=== PATIENT | female | born 1990 | race Hispanic/Latino ===

== ENCOUNTER 2018-06-07 10:38 | Outpatient (CLI) | payer MEDICAID ==
[2018-06-07] MEDS ORDERED: LACTATED RINGERS 500 ML IV ONE (10:46)
[2018-06-07 12:04] VITALS: BP 116/63
--- NOTE | 2018-06-07 13:12 | Ultrasound Report ---
LIMITED OB ULTRASOUND: bleeding. Gestation: [place] Position: Cephalic RAHUL = 21.5 cm Placenta: Posterior Placental Grade: 1 Heart Rate: 156 BPM Estimated gestational age is 26 weeks 5 days.
== END 2018-06-07 12:28 | disposition home or self-care (01) ==
LOC: TRG 10:38
PROVIDERS: ATTEND Obstetrics & Gynecology
DX: O47.02 False labor before 37 completed weeks of gestation, second trimester (principal); Z3A.26 26 weeks gestation of pregnancy
CPT/HCPCS: 59025; 76815

== ENCOUNTER 2018-07-20 13:13 | Outpatient (CLI) | payer MEDICAID ==
[2018-07-20 14:19] LABS: Bacteria,Urine 2+ /HPF (Negative); Bilirubin,Urine NEG (Negative); Blood,Urine MOD (Negative); Color,Urine Straw (Yellow); Protein,Urine <15 mg/dL mg/dL (Negative); Urobilinogen,Urine < 2.0 mg/dL (<2.0)
[2018-07-20 14:31] VITALS: BP 109/74
[2018-07-20] MEDS ORDERED: BRETHINE SUB-Q PRN (14:55)
[2018-07-20] MEDS ORDERED: LACTATED RINGERS 1,000 ML IV SCH (15:00)
--- NOTE | 2018-07-20 16:41 | Ultrasound Report ---
LIMITED OB ULTRASOUND: Fluid leaking. Gestation: [place] Position: Cephalic RAHUL (23.5) Heart Rate: 145 BPM Gestational age 32 weeks 6 days. Comment: Amniotic fluid volume at upper limits of normal.
== END 2018-07-20 15:55 | disposition home or self-care (01) ==
LOC: TRG 13:13
PROVIDERS: ATTEND Obstetrics & Gynecology
DX: O47.03 False labor before 37 completed weeks of gestation, third trimester (principal); Z3A.32 32 weeks gestation of pregnancy
CPT/HCPCS: 59025; 76815; 81001; 96360; J3105; J7120

== ENCOUNTER 2018-07-25 22:41 | Outpatient (CLI) | payer MEDICAID ==
[2018-07-25 22:54] VITALS: BP 118/72
[2018-07-25] MEDS ORDERED: LACTATED RINGERS 1,000 ML IV ONE (23:37)
[2018-07-26] MEDS ORDERED: VISTARIL PO PRN (01:33)
== END 2018-07-26 01:55 | disposition home or self-care (01) ==
LOC: TRG 22:41
PROVIDERS: ATTEND Obstetrics & Gynecology
DX: O47.03 False labor before 37 completed weeks of gestation, third trimester (principal); Z3A.33 33 weeks gestation of pregnancy
CPT/HCPCS: 59025; 96360; J7120; Q0177

== ENCOUNTER 2018-08-02 05:27 | Inpatient (IN) | payer MEDICAID ==
[2018-08-02] MEDS ORDERED: LACTATED RINGERS 1,000 ML IV ONE (05:35)
[2018-08-02 06:02] LABS: Bilirubin,Urine NEG (Negative); Blood,Urine MOD (Negative); Calcium Oxalate Crystals,Urine FEW; Color,Urine Yellow (Yellow); Hyaline Casts,Urine 1 /LPF; Mucus,Urine FEW /HPF; Protein,Urine <15 mg/dL mg/dL (Negative); Urobilinogen,Urine < 2.0 mg/dL (<2.0)
[2018-08-02] MEDS ORDERED: SUBLIMAZE IV ONE (06:19)
--- NOTE | 2018-08-02 07:34 | History and Physical Report ---
History of Present Illness Date of examination: 08/02/18 Chief complaint: contractions @ 34+5 weeks History of present illness: EDC Calculations by LMP: 09/08/2018 Past History : 1 Term Births: 0 Premature Births: 0 Living Children: 0 Para: 0 Mult. Births: 0 Prev : 0 Aborta: 0 Elect. Ab: 0 Spont. 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 of genital herpes: no Partner hx. of genital herpes: no Rash, Viral, or Febrile illness since last LMP? no Varicella/Chicken Pox Status: Previous Disease Genetic History Congenital Heart Defect: Mom: no Dad: no Rosy Disease: Mom: no Dad: no Thalassemia Mom: no Dad: no Neural Tube Defect Mom: no Dad: no Down's Syndrome Mom: no Dad: no Rakesh-Sachs Mom: no Dad: no Sickle Cell Disease/Trait Mom: no Dad: no Hemophilia Mom: no Dad: no Muscular Dystrophy Mom: no Dad: no Cystic Fibrosis Mom: no Dad: no Junaid Chorea Mom: no Dad: no Mental Retardation Mom: no Dad: no Fragile X Mom: no Dad: no Other Genetic/Chromosomal Disorder Mom: no Dad: no Child w/other defect Mom: no Dad: no Enviromental Exposures Xray Exposure: no Medication, drug, or alcohol use since LMP: no Chemical/Other Exposure: no Exposure to Cat Liter: no Hx of Parvovirus (Fifth Disease): no Occupational Exposure to Children: none Past History Past Medical History: other (see HPI) Past Surgical History: other (see HPI) 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) Family/Genetic History: other (see HPI) - Obstetrical History Expected Date of Delivery: 09/08/18 Actual Gestation: 34 Week(s) 5 Day(s) : 1 Para: 0 Hx # Term Pregnancies: 0 Number of Pregnancies: 0 Spontaneous Abortions: 0 Induced : 0 Number of Living Children: 0 Medications and Allergies Allergies Allergy/AdvReac Type Severity Reaction Status Date / Time No Known Allergies Allergy Unverified 06/07/18 11:23 Home Medications Medication Instructions Recorded Confirmed Last Taken Type Low Iron Tablet 1 tab PO QDAY 06/07/18 08/02/18 08/01/18 21:00 History Review of Systems All systems: negative - Vital Signs Vital signs: Vital Signs Pulse Pulse Ox 117 H 98 08/02/18 05:39 08/02/18 05:39 Temp Pulse Resp BP Pulse Ox 97.6 F 118 H 20 102/63 99 08/02/18 05:45 08/02/18 07:21 08/02/18 06:32 08/02/18 05:45 08/02/18 07:21 - Physical Exam Breasts: Positive: normal Cardiovascular: Regular rate Lungs: Positive: Clear to auscultation, Normal air movement Abdomen: Positive: normal appearance, soft Genitourinary (Female): Positive: normal external genitalia, normal perenium Vulva: both: normal Vagina: Positive: normal moisture Uterus: Positive: normal size Anus/Rectum: Positive: normal perianal skin Extremities: Positive: normal - Obstetrical FHR: category 1 Uterine Contraction Monitor Mode: External Cervical Dilatation: 1.5 Uterine Contraction Pattern: Regular Uterine Tone Measurement Phase: Contraction Uterine Contraction Intensity: Mild Results Result Diagrams: 08/02/18 06:00 All other labs normal. Assessment and Plan 27 y/o @ 34+5 weeks presented with c/o painful contractions that have eased since administration of IV Fluids and fentanyl IVP. no change in cervical exam. patient continues to c/o back pain and ctx are present on toco. EFW in office 07/27 6#0, RAHUL 16, vertex. Dr. Caballero consulted - plan to admit patient for steroids, hydration and rest. Admission orders in EMR. Will continue to monitor for signs of labor. - Patient Problems (1) 34 weeks gestation of Current Visit: Yes Status: Acute (2) uterine contractions in third trimester, antepartum Current Visit: Yes Status: Acute
[2018-08-02] MEDS: LACTATED RINGERS 1,000 ML IV SCH ×3 (07:54→19:37)
[2018-08-02] MEDS ORDERED: ALUM-MAG HYDROX-SIMETH 200-200-20MG/5ML PO PRN (08:00)
[2018-08-02] MEDS ORDERED: MILK OF MAGNESIA PO PRN (08:00)
[2018-08-02] MEDS ORDERED: ZOFRAN IM NR (08:00)
[2018-08-02] MEDS ORDERED: ZOFRAN IV PRN (08:00)
[2018-08-02] MEDS ORDERED: COLACE PO PRN (08:00)
[2018-08-02] MEDS ORDERED: TYLENOL PO PRN (08:00)
[2018-08-02 08:22] LABS: Hematocrit 37.8 % (30.3-42.9); Hemoglobin 13.3 gm/dl (10.1-14.3); Mean Corpuscular HGB Conc 35 % (30-34); Mean Corpuscular Hemoglobin 32 pg (28-32); Mean Corpuscular Volume 90 fl (79-97); Platelet Count 233 K/mm3 (140-440); Red Cell Distribution Width 13.1 % (13.2-15.2)
[2018-08-02] MEDS ORDERED: STADOL IV PRN (08:30)
[2018-08-02] MEDS: CELESTONE SOLUSPAN IM SCH (09:26)
[2018-08-02] MEDS: PRENATAL VITAMIN PO SCH (10:26)
[2018-08-02 16:57] VITALS: BP 113/72
--- NOTE | 2018-08-02 17:32 | Event Note ---
Date: 08/02/18 ctx appear to have diminished in frequency, FHT reviewed with marked variablity. will get BPP. continue current management
--- NOTE | 2018-08-02 18:45 | Event Note ---
Date: 08/02/18 BPP 09/07 incliuding NST. will con't to monitor closely and give IV hydration at this time.
--- NOTE | 2018-08-03 00:19 | Ultrasound Report ---
FINAL REPORT EXAM: US OB BPP WO NON-STRESS HISTORY: well being COMPARISON: None available. TECHNIQUE: Several real-time grayscale and color Doppler images were obtained. FINDINGS: Normal breathing movements, movements, posterior tone and qualitative amniotic fluid volume. heart rate 132 beats per minute. presentation cephalic. IMPRESSION: Biophysical profile score 8/8.
[2018-08-03] MEDS: LACTATED RINGERS 1,000 ML IV SCH (04:25)
--- NOTE | 2018-08-03 06:11 | Progress Note ---
Assessment and Plan Pt sleeping States she has only occasional cramping. Reports good FM Denies LOF no vaginal bleeding. Pt has OB appt 08-10-18. Will consult with All questions addressed. Subjective - Subjective Date of service: 08/03/18 (pt made aware of poss d/c after BMZ) Principal diagnosis: IUP @ 34w6d with ctx; 2nd dose BMZ due this AM Patient reports: movement normal Objective - Vital Signs Vital Signs: Vital Signs - 12hr 08/02/18 19:35 Temperature 97.9 F Pulse Rate 100 H Blood Pressure 113/72 [Left] O2 Sat by Pulse 97 Oximetry - Exam Breasts: deferred Cardiovascular: Regular rate Lungs: Normal air movement Abdomen: Present: normal appearance, soft. Absent: distention, tenderness Uterus: Present: normal FHR: auscultation normal, category 1 (NST reactive; monitor off for pt to rest) Uterine Contraction Monitor Mode: External Uterine Contraction Pattern: Absent Uterine Tone Measurement Phase: Resting Extremities: normal Deep Tendon Reflex Grade: Normal +2 - Labs Labs: Abnormal Labs 08/02/18 06:00 MCHC 35 H RDW 13.1 L Laboratory Results - last 24 hr 08/02/18 08/02/18 08/02/18 05:45 06:00 06:00 WBC RBC Hgb Hct MCV MCH MCHC RDW Plt Count Urine Color Yellow Urine Turbidity Slightly-cloudy Urine pH 6.0 Ur Specific [place] 1.013 Urine Protein <15 mg/dl Urine Glucose (UA) Neg Urine Ketones Tr Urine Blood Mod Urine Nitrite Neg Urine Urobilinogen < 2.0 Ur Leukocyte Esterase Tr Urine WBC (Auto) 5.0 Calcium Oxalate Crystal Few Hyaline Casts 1 Urine Mucus Few RPR Nonreactive Blood Type A POSITIVE Antibody Screen Negative 08/02/18 06:00 WBC 9.9 RBC 4.20 Hgb 13.3 Hct 37.8 MCV 90 MCH 32 MCHC 35 H RDW 13.1 L Plt Count 233 Urine Color Urine Turbidity Urine pH Ur Specific [place] Urine Protein Urine Glucose (UA) Urine Ketones Urine Blood Urine Nitrite Urine Urobilinogen Ur Leukocyte Esterase Urine WBC (Auto) Calcium Oxalate Crystal Hyaline Casts Urine Mucus RPR Blood Type Antibody Screen
[2018-08-03] MEDS: CELESTONE SOLUSPAN IM SCH (09:35)
[2018-08-03] MEDS: PRENATAL VITAMIN PO SCH (09:39)
--- NOTE | 2018-08-03 10:17 | Discharge Summary ---
Providers - Providers Date of Admission: 08/02/18 07:26 Date of discharge: 08/03/18 (d/c after 2nd dose BMZ) Attending physician: PADMINI DOUGHERTY Primary care physician: PADMINI DOUGHERTY Hospitalization Reason for admission: other ( ctx) Hospital course: resolution of ctx with rest, IVFs, and pt received course of BMZ Condition at discharge: Good Disposition: DC-01 TO HOME OR SELFCARE - Discharge Diagnoses (1) uterine contractions in third trimester, antepartum Status: Acute Comment: keep next renato appt 08-10-18 Plan - Provider Discharge Summary Activity: routine, no sex for 6 weeks, no heavy lifting 4 weeks, no strenuous exercise Diet: other (you must drink at least 64 oz of water every day) Instructions: routine Additional instructions: [] Smoking cessation referral if applicable(refer to patient education folder for contact #) [] Refer to [facility]'s [facility] Booklet Call your doctor immediately for: * Fever > 100.5 * Heavy vaginal bleeding ( >1 pad per hour) * Severe persistent headache * Shortness of breath * Reddened, hot, painful area to leg or breast * Drainage or odor from incision. * Keep incision clean and dry at all times and follow doctor's instructions regarding bathing/showering - Follow up plan Follow up: PADMIIN DOUGHERTY MD [Primary Care Provider] - 08/10/18 (Call with any contractions 6 in an hour; vaginal bleeding; loss of fluid. Report any decrease in movement. Keep your appointment as scheduled.) Forms: [facility] Discharge Summary
== END 2018-08-03 10:20 | disposition home or self-care (01) | DRG 778 ==
LOC: TRG 05:27 → LD 07:26 → TRG 07:26
PROVIDERS: ADMIT Obstetrics & Gynecology; ATTEND Obstetrics & Gynecology
DX: O60.03 Preterm labor without delivery, third trimester (principal); Z82.3 Family history of stroke; Z3A.36 36 weeks gestation of pregnancy
CPT/HCPCS: 36415; 76819; 81001; 85027; 86592; 86850; 86900; 86901; 87116; J0595; J0702; J2405; J3010; J7120

== ENCOUNTER 2018-08-16 12:14 | Outpatient (CLI) | payer MEDICAID ==
[2018-08-16] MEDS ORDERED: LACTATED RINGERS 500 ML IV ONE (13:55)
[2018-08-16 13:57] LABS: Bacteria,Urine 3+ /HPF (Negative); Bilirubin,Urine NEG (Negative); Blood,Urine SM (Negative); Calcium Oxalate Crystals,Urine 3+; Color,Urine Yellow (Yellow); Mucus,Urine 1+ /HPF; Protein,Urine <15 mg/dL mg/dL (Negative)
[2018-08-16 14:12] LABS: Hematocrit 36.2 % (30.3-42.9); Hemoglobin 12.6 gm/dl (10.1-14.3); Mean Corpuscular HGB Conc 35 % (30-34); Mean Corpuscular Hemoglobin 31 pg (28-32); Mean Corpuscular Volume 90 fl (79-97); Platelet Count 209 K/mm3 (140-440); Red Blood Count 4.02 M/mm3 (3.65-5.03); Red Cell Distribution Width 13.8 % (13.2-15.2)
[2018-08-16 14:16] LABS: Alanine Aminotransferase 15 units/L (7-56); Uric Acid 6.3 mg/dL (3.5-7.6)
[2018-08-16 14:48] VITALS: BP 123/74
--- NOTE | 2018-08-16 15:53 | Ultrasound Report ---
FINAL REPORT EXAM: US OB LIMITED HISTORY: wellbeing TECHNIQUE: Transabdominal OB ultrasound. Biophysical profile. PRIORS: Biophysical profile August 02, 2018. FINDINGS: Single intrauterine dates 36.5 weeks. PAULA equals September 08, 2018. Single fetus is identified. heart rate: 146 BPM RAHUL: 24.4 cm. At the 95th percentile. Breathin Gross Body Movements: 2 Tone: 2 Qualitative AFV: 2 IMPRESSION: Single live intrauterine . Biophysical profile score 8/8.
--- NOTE | 2018-08-16 15:53 | Ultrasound Report ---
FINAL REPORT EXAM: US OB BPP WO NON-STRESS HISTORY: wellbeing TECHNIQUE: Transabdominal OB ultrasound. Biophysical profile. PRIORS: Biophysical profile August 02, 2018. FINDINGS: Single intrauterine dates 36.5 weeks. PAULA equals September 08, 2018. Single fetus is identified. heart rate: 146 BPM RAHUL: 24.4 cm. At the 95th percentile. Breathin Gross Body Movements: 2 Tone: 2 Qualitative AFV: 2 IMPRESSION: Single live intrauterine . Biophysical profile score 8/8.
== END 2018-08-16 15:15 | disposition home or self-care (01) ==
LOC: TRG 12:14
PROVIDERS: ATTEND Obstetrics & Gynecology
DX: O47.03 False labor before 37 completed weeks of gestation, third trimester (principal); Z3A.36 36 weeks gestation of pregnancy
CPT/HCPCS: 36415; 76815; 76819; 81001; 82565; 83615; 84450; 84460; 84550; 85027

== ENCOUNTER 2018-08-20 20:50 | Inpatient (IN) | payer MEDICAID ==
--- NOTE | 2018-08-20 22:19 | History and Physical Report ---
History of Present Illness Date of examination: 08/20/18 Date of admission: 08/20/18 22:02 Chief complaint: my water broke History of present illness: Pt presents c/o leaking pinkish fluid. As per triage nurse pt has forbag palpated but has clear fluid noted on glove and appears to be leaking amniotic fluid. Pt admitted for SROM and latent labor. Menstrual History Regularity: irregular Menses every: 45 days Duration: 3-4 LMP: 12/02/2017 LMP reliability: month known test type: urine test Date: 03/23/2018 BC at conception: none Planned ? no EDC Calculations LMP: 09/08/2018 EDC Confirmation: 09/08/2018 Gestational Age: 15 6/7 weeks Past History : 1 Term Births: 0 Premature Births: 0 Living Children: 0 Para: 0 Mult. Births: 0 Prev : 0 Aborta: 0 Elect. Ab: 0 Spont. 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 of genital herpes: no Partner hx. of genital herpes: no Rash, Viral, or Febrile illness since last LMP? no Varicella/Chicken Pox Status: Previous Disease Genetic History Congenital Heart Defect: Mom: no Dad: no Rosy Disease: Mom: no Dad: no Thalassemia Mom: no Dad: no Neural Tube Defect Mom: no Dad: no Down's Syndrome Mom: no Dad: no Rakesh-Sachs Mom: no Dad: no Sickle Cell Disease/Trait Mom: no Dad: no Hemophilia Mom: no Dad: no Muscular Dystrophy Mom: no Dad: no Cystic Fibrosis Mom: no Dad: no Gage Chorea Mom: no Dad: no Mental Retardation Mom: no Dad: no Fragile X Mom: no Dad: no Other Genetic/Chromosomal Disorder Mom: no Dad: no Child w/other defect Mom: no Dad: no Enviromental Exposures Xray Exposure: no Medication, drug, or alcohol use since LMP: no Chemical/Other Exposure: no Exposure to Cat Liter: no Hx of Parvovirus (Fifth Disease): no Occupational Exposure to Children: none Past History Past Medical History: other (see hpi) Past Surgical History: other (see hpi) 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) Family/Genetic History: other (see hpi) - Obstetrical History Expected Date of Delivery: 09/08/18 Actual Gestation: 37 Week(s) 2 Day(s) : 1 Medications and Allergies Allergies Allergy/AdvReac Type Severity Reaction Status Date / Time No Known Allergies Allergy Unverified 06/07/18 11:23 Home Medications Medication Instructions Recorded Confirmed Last Taken Type Low Iron Tablet 1 tab PO QDAY 06/07/18 08/02/18 08/01/18 21:00 History Review of Systems All systems: negative - Vital Signs Vital signs: Vital Signs Pulse BP 104 H 118/71 08/20/18 21:02 08/20/18 21:02 Temp Pulse Resp BP Pulse Ox 104 H 118/71 08/20/18 21:02 08/20/18 21:02 Results All other labs normal. Assessment and Plan - Patient Problems (1) 37 weeks gestation of Current Visit: Yes Status: Acute (2) SROM (spontaneous rupture of membranes) Current Visit: Yes Status: Acute Plan to address problem: -admit -pain management -augmentation if needed -anticipate for
[2018-08-20] MEDS ORDERED: BRETHINE IVP PRN (22:21)
[2018-08-20] MEDS ORDERED: SUBLIMAZE IV PRN (22:21)
[2018-08-20] MEDS ORDERED: XYLOCAINE 2% INFILTRATI ONE (22:21)
[2018-08-20] MEDS ORDERED: ZOFRAN IV PRN (22:21)
[2018-08-20] MEDS ORDERED: BRETHINE SUB-Q PRN (22:21)
[2018-08-20 22:44] LABS: Hematocrit 35.3 % (30.3-42.9); Hemoglobin 12.7 gm/dl (10.1-14.3); Mean Corpuscular HGB Conc 36 % (30-34); Mean Corpuscular Hemoglobin 32 pg (28-32); Mean Corpuscular Volume 89 fl (79-97); Platelet Count 193 K/mm3 (140-440); Red Blood Count 3.97 M/mm3 (3.65-5.03); Red Cell Distribution Width 13.5 % (13.2-15.2)
[2018-08-20] MEDS ORDERED: PITOCin/NS 20 UNIT/1000ML DRIP 20 UNITS/1,000 ML BAG IV SCH (23:00)
[2018-08-20] MEDS ORDERED: PITOCin/NS 30 UNIT/500ML 30 UNITS/500 ML BAG IV SCH ×2 (23:00)
[2018-08-20] MEDS: LACTATED RINGERS 1,000 ML IV SCH (23:30)
[2018-08-21] MEDS ORDERED: NARCAN 2 MG/2 ML IV PRN (01:23)
--- NOTE | 2018-08-21 01:25 | Anesthesia Consultation ---
Anesthesia Consult and Med Hx Date of service: 08/21/18 - Airway Anesthetic Teeth Evaluation: Good ROM Head & Neck: Adequate Mental/Hyoid Distance: Adequate Mallampati Class: Class II Intubation Access Assessment: Probably Good - Pulmonary Exam CTA: Yes - Cardiac Exam Cardiac Exam: RRR - Pre-Operative Health Status ASA Pre-Surgery Classification: ASA2 Proposed Anesthetic Plan: Epidural, Spinal - Pulmonary Hx Asthma: No COPD: No Hx Pneumonia: No - Cardiovascular System Hx Hypertension: No - Central Nervous System Hx Seizures: No Hx Psychiatric Problems: No - Endocrine Hx Renal Disease: No Hx End Stage Renal Disease: No Hx Hypothyroidism: No Hx Hyperthyroidism: No - Hematic Hx Anemia: No Hx Sickle Cell Disease: No - Other Systems Hx Alcohol Use: No
[2018-08-21] MEDS: LACTATED RINGERS 1,000 ML IV SCH ×3 (01:40→03:47)
[2018-08-21] MEDS ORDERED: fentaNYL-BUPIV 2 MCG/ML-0.125% 200 MCG/100 ML BAG EPIDURAL SCH (02:00)
--- NOTE | 2018-08-21 03:41 | Progress Note ---
Assessment and Plan - Patient Problems (1) 37 weeks gestation of Current Visit: Yes Status: Acute (2) SROM (spontaneous rupture of membranes) Current Visit: Yes Status: Acute Plan to address problem: -in active labor -early decels noted -restart pitiocin as it had been d/c by RN -anticipate -procedure and placement of internal device were d/w prior to placement. she expressed understanding and agreed to placement. Subjective - Subjective Date of service: 08/21/18 Principal diagnosis: IUP @ 37+s/p SROM now active labor Interval history: Pt just c/o nausea with lying on back and of feeling some pressure. She otherwise has no c/o.Called by RN to evaluate pt due to having late decels with contractions.Forebag present and complete ROM was done with cervical exam. IUPC and ISE placed at this time w/o difficulty. Clear fluid noted followed by bloody show. Blood tined fluid in the cath after placement. Pt tolerated procedure well. With internal devices inplace, pt appears to be having early decels and not late decels with good variability and return to base line. Patient reports: loss of fluid, movement normal, contractions, no new complaints Objective - Vital Signs Vital Signs: Vital Signs - 12hr 08/20/18 08/20/18 08/20/18 21:02 22:24 22:39 Temperature 97.8 F Pulse Rate 104 H 100 H Respiratory 18 Rate Blood Pressure 118/71 107/61 O2 Sat by Pulse Oximetry 08/20/18 08/20/18 08/20/18 22:47 22:52 22:57 Temperature Pulse Rate 102 H 98 H 103 H Respiratory Rate Blood Pressure O2 Sat by Pulse 98 98 98 Oximetry 08/20/18 08/20/18 08/20/18 23:02 23:07 23:12 Temperature Pulse Rate 102 H 104 H 96 H Respiratory Rate Blood Pressure O2 Sat by Pulse 98 97 98 Oximetry 08/20/18 08/20/18 08/20/18 23:17 23:22 23:27 Temperature Pulse Rate 96 H 107 H 106 H Respiratory Rate Blood Pressure O2 Sat by Pulse 97 98 97 Oximetry 08/20/18 08/20/18 08/20/18 23:32 23:37 23:42 Temperature Pulse Rate 101 H 104 H 105 H Respiratory Rate Blood Pressure O2 Sat by Pulse 96 97 98 Oximetry 08/20/18 08/20/18 08/20/18 23:47 23:52 23:53 Temperature Pulse Rate 102 H 108 H 102 H Respiratory Rate Blood Pressure O2 Sat by Pulse 98 96 92 Oximetry 08/20/18 08/21/18 08/21/18 23:57 00:02 00:07 Temperature Pulse Rate 98 H 99 H Respiratory Rate Blood Pressure O2 Sat by Pulse 96 97 99 Oximetry 08/21/18 08/21/18 08/21/18 00:12 00:17 00:22 Temperature Pulse Rate 96 H 101 H 100 H Respiratory Rate Blood Pressure O2 Sat by Pulse 97 97 96 Oximetry 08/21/18 08/21/18 08/21/18 00:27 00:32 00:37 Temperature Pulse Rate 99 H 105 H 108 H Respiratory Rate Blood Pressure O2 Sat by Pulse 96 98 97 Oximetry 08/21/18 08/21/18 08/21/18 00:42 00:49 00:54 Temperature Pulse Rate 112 H 107 H 111 H Respiratory Rate Blood Pressure O2 Sat by Pulse 97 97 98 Oximetry 08/21/18 08/21/18 08/21/18 00:59 01:04 01:09 Temperature Pulse Rate 124 H 111 H 101 H Respiratory Rate Blood Pressure O2 Sat by Pulse 98 98 97 Oximetry 08/21/18 08/21/18 08/21/18 01:14 01:19 01:31 Temperature Pulse Rate 129 H 113 H 115 H Respiratory Rate Blood Pressure O2 Sat by Pulse 98 97 99 Oximetry 08/21/18 08/21/18 08/21/18 01:36 01:41 01:42 Temperature Pulse Rate 117 H 27 L 113 H Respiratory Rate Blood Pressure 134/73 O2 Sat by Pulse 99 99 Oximetry 08/21/18 08/21/18 08/21/18 01:44 01:46 01:48 Temperature Pulse Rate 104 H 115 H 115 H Respiratory Rate Blood Pressure 136/79 135/72 109/56 O2 Sat by Pulse 100 Oximetry 08/21/18 08/21/18 08/21/18 01:50 01:51 01:52 Temperature Pulse Rate 150 H 146 H 129 H Respiratory Rate Blood Pressure 105/56 131/71 O2 Sat by Pulse 98 Oximetry 08/21/18 08/21/18 08/21/18 01:54 01:56 01:58 Temperature Pulse Rate 96 H 111 H 104 H Respiratory Rate Blood Pressure 93/46 96/53 115/72 O2 Sat by Pulse 97 Oximetry 08/21/18 08/21/18 08/21/18 02:00 02:01 02:02 Temperature Pulse Rate 77 69 101 H Respiratory Rate Blood Pressure 77/51 116/58 O2 Sat by Pulse 100 Oximetry 08/21/18 08/21/18 08/21/18 02:04 02:06 02:08 Temperature Pulse Rate 96 H 122 H 120 H Respiratory Rate Blood Pressure 126/82 131/86 117/64 O2 Sat by Pulse 100 Oximetry 08/21/18 08/21/18 08/21/18 02:10 02:11 02:12 Temperature Pulse Rate 120 H 126 H 113 H Respiratory Rate Blood Pressure 116/58 99/51 O2 Sat by Pulse 100 Oximetry 08/21/18 08/21/18 08/21/18 02:14 02:16 02:18 Temperature Pulse Rate 112 H 116 H 114 H Respiratory Rate Blood Pressure 114/56 113/59 107/57 O2 Sat by Pulse 99 Oximetry 08/21/18 08/21/18 08/21/18 02:20 02:21 02:26 Temperature 98 F Pulse Rate 103 H 111 H 109 H Respiratory 16 Rate Blood Pressure 117/65 123/66 O2 Sat by Pulse 99 99 Oximetry 08/21/18 08/21/18 08/21/18 02:31 02:36 02:41 Temperature Pulse Rate 113 H 111 H 112 H Respiratory Rate Blood Pressure O2 Sat by Pulse 99 99 99 Oximetry 08/21/18 08/21/18 08/21/18 02:42 02:46 02:51 Temperature Pulse Rate 111 H 122 H 103 H Respiratory Rate Blood Pressure 110/60 O2 Sat by Pulse 99 99 Oximetry 08/21/18 08/21/18 08/21/18 02:56 02:57 03:01 Temperature Pulse Rate 108 H 109 H 109 H Respiratory Rate Blood Pressure 105/50 O2 Sat by Pulse 100 99 Oximetry 08/21/18 08/21/18 08/21/18 03:06 03:11 03:16 Temperature Pulse Rate 109 H 114 H 109 H Respiratory Rate Blood Pressure 100/55 O2 Sat by Pulse 99 99 100 Oximetry 08/21/18 08/21/18 08/21/18 03:21 03:26 03:31 Temperature Pulse Rate 109 H 116 H 122 H Respiratory Rate Blood Pressure 100/57 O2 Sat by Pulse 100 100 100 Oximetry 08/21/18 03:36 Temperature Pulse Rate 109 H Respiratory Rate Blood Pressure O2 Sat by Pulse 99 Oximetry - Exam FHR: category 2 Cervical Dilatation: 8 (clear fluid; iupc and ise placed w/o difficulty, bloody show noted) Cervical Effacement Percentage: 90 station: 0 Uterine Contraction Pattern: Regular Uterine Tone Measurement Phase: Resting Uterine Contraction Intensity: Moderate Extremities: normal - Labs Labs: Abnormal Labs 08/20/18 22:20 MCHC 36 H Laboratory Results - last 24 hr 08/20/18 08/20/18 22:20 22:20 WBC 9.5 RBC 3.97 Hgb 12.7 Hct 35.3 MCV 89 MCH 32 MCHC 36 H RDW 13.5 Plt Count 193 Blood Type A POSITIVE Antibody Screen Negative
[2018-08-21] MEDS: MINERAL OIL PO PRN ×2 (05:14→05:51)
--- NOTE | 2018-08-21 06:28 | Procedure Note ---
OB Delivery Note - Delivery Date of Delivery: 08/21/18 Surgeon: ROSY BASHIR Estimated blood loss: 300cc - Vaginal Delivery presentation: vertex Delivery position: OP (LOP) Intrapartum events: mult.variable deceleratio Delivery induction: none Delivery augmentation: pitocin Delivery monitor: external FHT, external uterine, internal FHT, internal uterine Route of delivery: Delivery placenta: spontaneous Delivery cord: 3 umbilical vessels Episiotomy: midline (no extensions) Delivery laceration: none Delivery repair: vicryl (3-0) Anesthesia: epidural Delivery comments: Delivery as above. After an hour of pushing, pt delivered a live born male infant weight and apgars as noted via over a MLE in LOP position. Nuchal times one was tight and clamped x2 and cut x 1. Ant shoulder and rest of delivered w/o difficulty. Infant taken to [place] warm. NICU and Resp teams called to bedside due to being stunned at delivery.At time of their arrival was crying and active. Placenta delivered spontaneously intact. Cord blood was not collected. MLE was w/o extensions and was repaired in usual fashion. Pt tolerated procedure well. Mother and stable in LDR. - Infant A at 1 minute: 8 at 5 minutes: 8 Infant Gender: Male (7lbs 3oz)
[2018-08-21] MEDS ORDERED: MILK OF MAGNESIA PO PRN (06:29)
[2018-08-21] MEDS ORDERED: LANSINOH TP PRN (06:29)
[2018-08-21] MEDS ORDERED: PHENERGAN PO PRN (06:29)
[2018-08-21] MEDS ORDERED: DULCOLAX PR PRN (06:29)
[2018-08-21] MEDS ORDERED: PHENERGAN PR PRN (06:29)
[2018-08-21] MEDS ORDERED: TYLENOL PO PRN (06:29)
[2018-08-21] MEDS ORDERED: BENADRYL PO PRN (06:29)
[2018-08-21] MEDS ORDERED: TUCKS PAD TP PRN (06:29)
[2018-08-21] MEDS ORDERED: SODIUM CHLORIDE FLUSH SYRINGE 10 ML IV NR (07:00)
[2018-08-21] MEDS: PRENATAL VITAMIN PO SCH (09:42)
[2018-08-21] MEDS: MOTRIN PO SCH ×2 (12:33→18:36)
[2018-08-21 18:23] LABS: Hematocrit 31.6 % (30.3-42.9); Hemoglobin 10.8 gm/dl (10.1-14.3)
[2018-08-22] MEDS: MOTRIN PO SCH ×2 (05:42)
[2018-08-22] MEDS ORDERED: BOOSTRIX IM ONE (06:00)
--- NOTE | 2018-08-22 06:41 | Discharge Summary ---
Providers - Providers Date of Admission: 08/20/18 22:02 Date of discharge: 08/22/18 (pt agrees with d/c ) Attending physician: ROSY BASHIR Primary care physician: ROSY BASHIR Hospitalization Reason for admission: active labor Delivery: Episiotomy: none Laceration: none Incision: normal, dry, intact Other procedures: none complications: none Discharge diagnosis: IUP at term delivered baby: male Hospital course: uncomplicated vaginal delivery Pt sitting up caring for NB No c/o pain or discomfort VSS FF below umb Lochia small Perineum intact Asymptomatic anemia Doing well s/p vag delivery P: d/c today with instructions RTO for circ one week Condition at discharge: Good Disposition: DC-01 TO HOME OR SELFCARE - Discharge Diagnoses (1) SROM (spontaneous rupture of membranes) Status: Acute Comment: RTO 4 weeks PP care Plan - Discharge Medications Prescriptions: Lidocain2.5%/Prilocai2.5% [Emla] 1 gm TP ONCE #1 tube - Provider Discharge Summary Activity: routine, no sex for 6 weeks, no heavy lifting 4 weeks, no strenuous exercise Diet: routine Instructions: routine Additional instructions: [] Smoking cessation referral if applicable(refer to patient education folder for contact #) [] Refer to [facility]'s [facility] Booklet Call your doctor immediately for: * Fever > 100.5 * Heavy vaginal bleeding ( >1 pad per hour) * Severe persistent headache * Shortness of breath * Reddened, hot, painful area to leg or breast * Drainage or odor from incision. * Keep incision clean and dry at all times and follow doctor's instructions regarding bathing/showering - Follow up plan Follow up: ROSY BASHIR MD [Primary Care Provider] - 7 Days (Congratulations! Please call [phone] to schedule your visit in 4 weeks and your son's circumcision in one week. Bring the EMLA cream with you to his visit. Do NOT use at home. Call with concerns.)
[2018-08-22] MEDS: PRENATAL VITAMIN PO SCH (10:09)
[2018-08-22 14:19] VITALS: BP 111/73
== END 2018-08-22 14:50 | disposition home or self-care (01) | DRG 775 ==
LOC: TRG 20:50 → LD 22:02 → OB 08-21 07:35
PROVIDERS: ADMIT Obstetrics & Gynecology; ATTEND Obstetrics & Gynecology
PROC: 10E0XZZ Delivery of Products of Conception, External Approach (ICD-10-PCS; principal; 2018-08-21)
PROC: 0W8NXZZ Division of Female Perineum, External Approach (ICD-10-PCS; 2018-08-21)
PROC: 3E0R3BZ Introduction of Anesthetic Agent into Spinal Canal, Percutaneous Approach (ICD-10-PCS; 2018-08-21)
PROC: 00HU33Z Insertion of Infusion Device into Spinal Canal, Percutaneous Approach (ICD-10-PCS; 2018-08-21)
PROC: 10H07YZ Insertion of Other Device into Products of Conception, Via Natural or Artificial Opening (ICD-10-PCS; 2018-08-21)
DX: O76 Abnormality in fetal heart rate and rhythm complicating labor and delivery (principal); O69.81X0 Labor and delivery complicated by cord around neck, without compression, not applicable or unspecified; Z3A.37 37 weeks gestation of pregnancy; Z37.0 Single live birth; O90.81 Anemia of the puerperium; D64.9 Anemia, unspecified; Z88.8 Allergy status to other drugs, medicaments and biological substances
CPT/HCPCS: 36415; 85014; 85018; 85027; 86592; 86850; 86900; 86901; 90471; 90715; 99211; G0463; J2405; J2590; J3010; J7120

== ENCOUNTER 2019-07-21 12:57 | Outpatient (CLI) | payer MEDICAID ==
--- NOTE | 2019-07-21 13:35 | XRay Report ---
CHEST 2 VIEWS INDICATION: CHRONIC COUGH. COMPARISON: None at this facility FINDINGS: Support devices: None. Heart: Within normal limits. Lungs/pleura: No acute air space or interstitial disease. No pneumothorax. Additional findings: None. IMPRESSION: No acute findings. Signer Name: Zaire Lopez Jr, MD Signed: 07/21/2019 1:31 PM Workstation Name: [id number]
== END 2019-07-21 12:58 | disposition home or self-care (01) ==
LOC: XRAY 12:57
PROVIDERS: ATTEND Obstetrics & Gynecology
DX: R05 Cough (principal)
CPT/HCPCS: 71046

== ENCOUNTER 2019-07-24 10:36 | Emergency (ER) | payer MEDICAID ==
[2019-07-24] MEDS ORDERED: REGLAN IV ONE (11:58)
[2019-07-24] MEDS ORDERED: NACL 0.9% 1000 ML 1,000 ML IV ONE (11:58)
--- NOTE | 2019-07-24 11:59 | Emergency Department Report ---
ED Abdominal Pain HPI - General Chief Complaint: Abdominal Pain Stated Complaint: VOMITING Time Seen by Provider: 07/24/19 11:14 Source: patient Mode of arrival: Ambulatory Limitations: No Limitations - History of Present Illness Initial Comments: 28-year-old female presents to the emergency room for three-day history of left side abdominal cramping that has intense today. Patient also complains of vomiting up blood. Patient reports she is 15 weeks she is 2. A 1 with a last menstrual period of 01/2019. Patient reports that the left lower quadrant pain is sharp shooting intermittent and is crampy. Patient admits to nausea. Patient reports she's had an ultrasound done at 13 weeks which reports was good. Patient reports she is currently being treated for urinary tract infection and on Macrobid. Patient reports that the pain is worse when she coughs or vomits. Patient is followed by [facility]. MD Complaint: abdominal pain Onset/Timin -: days(s) Location: LLQ Radiation: none Migration to: no migration Severity: moderate Severity scale (0 -10): 6 Quality: cramping Consistency: intermittent Improves With: nothing Worsens With: vomiting Associated Symptoms: nausea, vomiting, hematemesis - Related Data Home Medications Medication Instructions Recorded Confirmed Last Taken Low Iron Tablet 1 tab PO QDAY 06/07/18 08/20/18 08/19/18 Previous Rx's Medication Instructions Recorded Last Taken Type Lidocain2.5%/Prilocai2.5% [Emla] 1 gm TP ONCE #1 tube 08/21/18 Unknown Rx Allergies Allergy/AdvReac Type Severity Reaction Status Date / Time Benzodiazepines Allergy Unknown Hives Verified 08/21/18 09:42 haloperidol [From Haldol] AdvReac Unknown Hives Verified 08/21/18 09:42 ED Review of Systems ROS: Stated complaint: VOMITING Other details as noted in HPI Comment: All other systems reviewed and negative ED Past Medical Hx - Past Medical History Hx Hypertension: No Hx Congestive Heart Failure: No Hx Diabetes: No Hx Deep Vein Thrombosis: No Hx Renal Disease: No Hx Sickle Cell Disease: No Hx Seizures: No Hx Asthma: No Hx COPD: No Hx HIV: No - Surgical History Past Surgical History?: No - Social History Smoking Status: Never Smoker Substance Use Type: None - Medications Home Medications: Home Medications Medication Instructions Recorded Confirmed Last Taken Type Low Iron Tablet 1 tab PO QDAY 06/07/18 08/20/18 08/19/18 History Lidocain2.5%/Prilocai2.5% [Emla] 1 gm TP ONCE #1 tube 08/21/18 Unknown Rx ED Physical Exam - General Limitations: No Limitations General appearance: alert, in no apparent distress - Head Head exam: Present: atraumatic, normocephalic - Eye Eye exam: Present: normal appearance - ENT ENT exam: Present: mucous membranes moist - Neck Neck exam: Present: normal inspection - Respiratory Respiratory exam: Present: normal lung sounds bilaterally. Absent: respiratory distress - Cardiovascular Cardiovascular Exam: Present: regular rate, normal rhythm. Absent: systolic murmur, diastolic murmur, rubs, gallop - GI/Abdominal GI/Abdominal exam: Present: soft, tenderness (supra pubic) - Back Exam Back exam: Present: normal inspection - Neurological Exam Neurological exam: Present: alert, oriented X3, normal gait - Psychiatric Psychiatric exam: Present: normal affect, normal mood ED Course Vital Signs 07/24/19 10:48 Temperature 98.3 F Pulse Rate 99 H Respiratory 18 Rate Blood Pressure 119/70 O2 Sat by Pulse 95 Oximetry ED Medical Decision Making - Lab Data Result diagrams: 07/24/19 11:50 - Medical Decision Making 28-year-old female presents to the emergency room for three-day history of left side abdominal cramping that has intense today. Patient also complains of vomiting up blood. Patient reports she is 15 weeks she is 2. A 1 with a last menstrual period of 01/2019. Patient reports that the left lower quadrant pain is sharp shooting intermittent and is crampy. Patient admits to nausea. Patient reports she's had an ultrasound done at 13 weeks which reports was good. Patient reports she is currently being treated for urinary tract infection and on Macrobid. Patient reports that the pain is worse when she coughs or vomits. Patient is followed by my [facility] obstetricians. CBC hCG urinalysis and CMP has been ordered. Critical care attestation.: If time is entered above; I have spent that time in minutes in the direct care of this critically ill patient, excluding procedure time. ED Disposition Clinical Impression: Abdominal pain during in second trimester, Nausea & vomiting Disposition: - TO HOME OR SELFCARE Is pt being admited?: No Does the pt Need Aspirin: No Condition: Stable Instructions: Abdominal Pain (ED) Additional Instructions: Continue with your antinausea medications as prescribed. Tylenol for pain management. In follow-up which her CLIMATOLOGIST provider. Referrals: PRIMARY CARE, [Primary Care Provider] - 3-5 Days [facility] [Provider Group] - 3-5 Days Forms: Accompanied Note, Work/School Release Form(ED)
[2019-07-24 12:17] LABS: Hematocrit 37.8 % (30.3-42.9); Mean Corpuscular HGB Conc 34 % (30-34); Mean Corpuscular Volume 89 fl (79-97); Red Blood Count 4.26 M/mm3 (3.65-5.03); Red Cell Distribution Width 13.1 % (13.2-15.2)
[2019-07-24 12:18] LABS: Basophils # (Auto) 0.1 K/mm3 (0.0-0.1); Basophils % (Auto) 0.5 % (0.0-1.8); Eosinophils % (Auto) 0.3 % (0.0-4.3); Lymphocytes # (Auto) 1.4 K/mm3 (1.2-5.4); Lymphocytes % (Auto) 13.3 % (13.4-35.0); Monocytes # (Auto) 0.3 K/mm3 (0.0-0.8); Monocytes % (Auto) 2.9 % (0.0-7.3)
[2019-07-24 13:24] LABS: Platelet Count 231 K/mm3 (140-440)
[2019-07-24 13:44] LABS: Bilirubin,Urine NEG (Negative); Blood,Urine NEG (Negative); Color,Urine Yellow (Yellow); Mucus,Urine FEW /HPF; Protein,Urine <15 mg/dL mg/dL (Negative); Urobilinogen,Urine < 2.0 mg/dL (<2.0)
[2019-07-24 14:28] LABS: Alanine Aminotransferase 10 units/L (7-56); Albumin 4.1 g/dL (3.9-5); BUN/Creatinine Ratio 13; Blood Urea Nitrogen 5 mg/dL (7-17); Calcium 9.7 mg/dL (8.4-10.2); Hemolysis Index 39
[2019-07-24 14:54] VITALS: BP 114/66
== END 2019-07-24 14:54 | disposition home or self-care (01) ==
LOC: ED 10:36
DX: O26.892 Other specified pregnancy related conditions, second trimester (principal); R10.32 Left lower quadrant pain; O21.9 Vomiting of pregnancy, unspecified; Z88.8 Allergy status to other drugs, medicaments and biological substances; Z3A.15 15 weeks gestation of pregnancy
CPT/HCPCS: 36415; 80053; 81001; 84702; 85025; 96361; 96374; 99284; J2765; J7030

== ENCOUNTER 2019-09-29 11:55 | Outpatient (CLI) | payer MEDICAID ==
[2019-09-29 12:17] VITALS: BP 98/55
[2019-09-29] MEDS ORDERED: LACTATED RINGERS 1,000 ML IV SCH (13:00)
== END 2019-09-29 12:55 | disposition home or self-care (01) ==
LOC: TRG 11:55
PROVIDERS: ATTEND Obstetrics & Gynecology
DX: O47.02 False labor before 37 completed weeks of gestation, second trimester (principal); Z3A.24 24 weeks gestation of pregnancy
CPT/HCPCS: 59025

== ENCOUNTER 2019-11-17 22:02 | Outpatient (CLI) | payer MEDICAID ==
[2019-11-18] MEDS ORDERED: LACTATED RINGERS 1,000 ML IV ONE (00:26)
[2019-11-18] MEDS ORDERED: LACTATED RINGERS 1,000 ML ONE (00:39)
[2019-11-18 01:30] LABS: Bilirubin,Urine NEG (Negative); Blood,Urine NEG (Negative); Color,Urine Amber (Yellow); Mucus,Urine 3+ /HPF; Urobilinogen,Urine < 2.0 mg/dL (<2.0)
[2019-11-18 01:31] LABS: Amphetamine Screen,Urine PRESUMPTIVE NEGATIVE; Benzodiazepines Screen,Urine PRESUMPTIVE NEGATIVE; Cannabinoid Screen,Urine PRESUMPTIVE NEGATIVE; Cocaine Screen,Urine PRESUMPTIVE NEGATIVE; Methadone Screen,Urine PRESUMPTIVE NEGATIVE; Opiate Screen,Urine PRESUMPTIVE NEGATIVE
[2019-11-18] MEDS ORDERED: METOCLOPRAMIDE 10 MG/2 ML INJ IV ONE (02:18)
[2019-11-18 03:29] LABS: Hematocrit 33.1 % (30.3-42.9); Hemoglobin 11.3 gm/dl (10.1-14.3); Mean Corpuscular HGB Conc 34 % (30-34); Mean Corpuscular Volume 87 fl (79-97); Platelet Count 240 K/mm3 (140-440); Red Blood Count 3.83 M/mm3 (3.65-5.03); Red Cell Distribution Width 14.2 % (13.2-15.2)
[2019-11-18 03:43] LABS: Alanine Aminotransferase 7 units/L (7-56); Albumin 3.3 g/dL (3.9-5); BUN/Creatinine Ratio 20; Blood Urea Nitrogen 8 mg/dL (7-17); Hemolysis Index 6
[2019-11-18 04:36] VITALS: BP 96/55
[2019-11-18 04:51] LABS: Basophils % (Manual) 0 % (0.0-1.8); Eosinophils % (Manual) 0 % (0.0-4.3); Platelet Estimate Consistent w Auto; Total Cells Counted 100
--- NOTE | 2019-11-18 05:02 | Ultrasound Report ---
ULTRASOUND OBSTETRIC Indication: tachycardia Findings: There is a single, living intrauterine in cephalic presentation. 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 RAHUL 11.2 cm. heart rate is 138 beats per minute. The ovaries are normal. There is no free fluid. Impression: Intrauterine as noted Signer Name: Flynn Vaughn MD Signed: 11/18/2019 4:58 AM Workstation Name: [id number]
--- NOTE | 2019-11-18 05:03 | Ultrasound Report ---
CLINICAL DATA: See reason for exam. TECHNICAL DATA: Document breath, motion, gestational age, tone, and fluid. FINDINGS: respiration, tone, and motion are well visualized and normal. Amniotic fluid volume is normal. Biophysical profile score is 8/8. The lower uterine segment is evaluated and there is no evidence of placenta previa. heart rate is Heart Rate 138. IMPRESSION: The biophysical profile score is 8/8. Signer Name: Flynn Vaughn MD Signed: 11/18/2019 4:58 AM Workstation Name: [email or web address]
== END 2019-11-18 05:00 | disposition home or self-care (01) ==
LOC: TRG 22:02
PROVIDERS: ATTEND Obstetrics & Gynecology
DX: O21.2 Late vomiting of pregnancy (principal); O62.9 Abnormality of forces of labor, unspecified; O36.8330 Maternal care for abnormalities of the fetal heart rate or rhythm, third trimester, not applicable or unspecified; Z3A.32 32 weeks gestation of pregnancy
CPT/HCPCS: 36415; 59025; 76815; 76819; 80053; 80307; 81001; 82150; 83690; 84443; 85007; 85025; 96361; 96374; J2765; J7120; 96360

== ENCOUNTER 2019-12-25 18:16 | Outpatient (CLI) | payer MEDICAID ==
[2019-12-25 21:04] VITALS: BP 129/73
--- NOTE | 2019-12-25 22:23 | Ultrasound Report ---
ULTRASOUND OBSTETRIC LIMITED ULTRASOUND BIOPHYSICAL PROFILE INDICATION / CLINICAL INFORMATION: decreased movment, RAHUL. COMPARISON: 11/18/2019 FINDINGS: BREATHING MOVEMENT = 2 GROSS BODY MOVEMENT = 2 TONE = 2 QUALITATIVE AMNIOTIC FLUID VOLUME = 2 TOTAL BIOPHYSICAL SCORE = 8/8 AMNIOTIC FLUID INDEX (cm) = 14.9 cm PRESENTATION: Cephalic. HEART RATE (beats per minute): 145 ADDITIONAL FINDINGS: None. IMPRESSION: 1. Biophysical Score = 8/8 2. Single viable IUP in a cephalic presentation. Signer Name: Iman Villar MD Signed: 12/25/2019 10:19 PM Workstation Name: [id number]
== END 2019-12-25 22:03 | disposition home or self-care (01) ==
LOC: TRG 18:16
PROVIDERS: ATTEND Obstetrics & Gynecology
DX: O47.1 False labor at or after 37 completed weeks of gestation (principal); Z3A.37 37 weeks gestation of pregnancy
CPT/HCPCS: 59025; 76815; 76819

== ENCOUNTER 2019-12-31 12:43 | Outpatient (CLI) | payer MEDICAID ==
[2019-12-31 17:17] VITALS: BP 112/59
== END 2019-12-31 14:13 | disposition home or self-care (01) ==
LOC: TRG 12:43
PROVIDERS: ATTEND Obstetrics & Gynecology
DX: O47.1 False labor at or after 37 completed weeks of gestation (principal); Z3A.38 38 weeks gestation of pregnancy
CPT/HCPCS: 59025

== ENCOUNTER 2021-02-08 00:23 | Outpatient (CLI) | payer MEDICAID ==
[2021-02-08 00:49] VITALS: BP 141/80
[2021-02-08] MEDS ORDERED: ACETAMINOPHEN 500 MG TAB PO ONE (01:13)
[2021-02-08] MEDS ORDERED: LACTATED RINGERS 1,000 ML IV ONE (01:15)
[2021-02-08 02:50] LABS: Bacteria,Urine 4+ /HPF (Negative); Bilirubin,Urine NEG (Negative); Blood,Urine LG (Negative); Color,Urine Yellow (Yellow); Mucus,Urine FEW /HPF; Protein,Urine <15 mg/dL mg/dL (Negative); RBC,Urine > 182.0 /HPF (0.0-6.0)
[2021-02-08] MEDS ORDERED: cefTRIAXone/NS 1 GM/50 ML 1 GM/50 ML BAG IV ONE (04:33)
== END 2021-02-08 05:05 | disposition home or self-care (01) ==
LOC: TRG 00:23 → APU 00:30 → TRG 05:05
PROVIDERS: ATTEND Obstetrics & Gynecology
DX: O62.9 Abnormality of forces of labor, unspecified (principal); Z3A.37 37 weeks gestation of pregnancy
CPT/HCPCS: 59025; 81001; 96361; 96365; J0696; J7120; 96360